=== PATIENT | female | born 1995 | race African-American/Black ===

== ENCOUNTER 2023-06-15 20:19 | Inpatient (IN) | payer BC, MEDICAID ==
[~2023-06-15] VITALS: Ht 175.3 cm; Wt 82.6 kg
[2023-06-15] MEDS ORDERED: SODIUM CHLORIDE 0.9% 1,000 ML IV ONE (20:45)
[2023-06-15 21:07] LABS: BASOPHILS % 0.6 % (0.0-2.0); EOSINOPHILS % 0.7 % (0.0-5.0); HEMATOCRIT. 38.5 % (36.0-48.0); HEMOGLOBIN. 12.5 g/dL (12.0-16.0); LYMPHOCYTES % 28.7 % (20.0-50.0); MEAN CORPUSCULAR HEMOGLOBIN 28.1 pg (28.0-32.0); MEAN CORPUSCULAR HGB CONC 32.5 g/dL (31.0-37.0); MEAN CORPUSCULAR VOLUME 86.3 fL (81.0-99.0); MEAN PLATELET VOLUME 7.3 fl (7.4-10.4); MONOCYTES % 5.2 % (2.0-8.0); NEUTROPHILS % 64.8 % (40.0-76.0); PLATELET 366 x1000/uL (130-400); RED BLOOD CELL COUNT 4.46 mill/uL (4.2-5.4); RED CELL DISTRIBUTION WIDTH 15.1 % (11.6-14.6); WHITE BLOOD COUNT 7.8 x1000/uL (4.5-11.0)
[2023-06-15 21:10] LABS: CHLORIDE 105 mEq/L (98-107); INDEX HEMOLYSI 1 (1-3); INDEX ICTERIC 1 (1-4); INDEX LIPEMIC 1 (1-3); POTASSIUM 3.1 mEq/L (3.5-5.1); SODIUM 134 mEq/L (136-145)
[2023-06-15 21:12] LABS: D-DIMER 0.22 mg/L FEU (<0.50); PROTHROMBIN TIME 11.2 sec (9.6-11.0)
[2023-06-15 21:19] LABS: ALANINE AMINOTRANSFERASE 27 IU/L (13-61); ALBUMIN 3.8 g/dL (3.4-5.0); ASPARTATE AMINOTRANSFERASE 20 IU/L (15-37); BILIRUBIN TOTAL 0.3 mg/dL (0.1-1.0); CALCIUM 8.5 mg/dL (8.5-10.1); CARBON DIOXIDE 21 mEq/L (21-32); CREATININE 0.9 mg/dL (0.6-1.3); ETHANOL BLOOD < 10 mg/dL (-10); GLUCOSE 223 mg/dL (70-105); NT PRO B-TYPE NATRIURETIC PEP 53 pg/mL (5-125); PROTEIN TOTAL 7.5 g/dL (6.0-8.3); UREA NITROGEN BLOOD 8 mg/dL (7-21)
[2023-06-15 21:21] LABS: TROPONIN I HIGH SENSITIVITY < 4 ng/L (<54)
[2023-06-15 21:24] LABS: HCG SCREEN NEGATIVE
[2023-06-15] MEDS ORDERED: POTASSIUM CHLORIDE 20MEQ TABLET SR PO ONE (21:30)
[2023-06-15 23:08] LABS: TROPONIN I HIGH SENSITIVITY < 4 ng/L (<54)
[2023-06-15 23:20] LABS: *BARBITURATES SCREEN URINE NEGATIVE (NEGATIVE); *BENZODIAZEPINES SCREEN URINE NEGATIVE (NEGATIVE); *COCAINE SCREEN URINE NEGATIVE (NEGATIVE); ECSTASY MDMA SCREEN URINE NEGATIVE (NEGATIVE); METHADONE URINE SCREEN NEGATIVE (NEGATIVE); OPIATES URINE SCREEN NEGATIVE (NEGATIVE); PHENCYCLIDINE URINE SCREEN NEGATIVE (NEGATIVE)
[2023-06-15 23:36] LABS: *AMPHETAMINES SCREEN URINE PRESUMTIVE POSITIVE (NEGATIVE); CANNABINOID URINE SCREEN PRESUMTIVE POSITIVE (NEGATIVE)
[2023-06-16 08:43] VITALS: BP 152/108; PULSE 73; RESP 19; TEMP 99.1
[2023-06-16 09:12] VITALS: BP 152/108; PULSE 73; RESP 19; TEMP 99.1
[2023-06-16] MEDS ORDERED: POTASSIUM CHLORIDE 20MEQ TABLET SR PO NR (10:00)
[2023-06-16] MEDS: DILTIAZEM HCL 60MG TABLET PO SCH ×2 (11:32→17:43)
[2023-06-16 12:00] VITALS: BP 134/76; PULSE 82; RESP 18; TEMP 97.5
[2023-06-16 16:00] VITALS: BP 137/89; RESP 18; TEMP 97.7
[2023-06-17] VITALS: BP 128/93; PULSE 58; RESP 18; TEMP 97.9
[2023-06-17] MEDS: DILTIAZEM HCL 60MG TABLET PO SCH ×3 (00:24→13:40)
[2023-06-17 04:00] VITALS: BP 139/95; PULSE 63; RESP 18; TEMP 97.7
[2023-06-17 07:11] LABS: BASOPHILS % 0.5 % (0.0-2.0); EOSINOPHILS % 2.3 % (0.0-5.0); HEMOGLOBIN. 13.8 g/dL (12.0-16.0); LYMPHOCYTES % 44.1 % (20.0-50.0); MEAN CORPUSCULAR HEMOGLOBIN 28.2 pg (28.0-32.0); MEAN CORPUSCULAR HGB CONC 32.8 g/dL (31.0-37.0); MEAN CORPUSCULAR VOLUME 85.9 fL (81.0-99.0); MEAN PLATELET VOLUME 7.4 fl (7.4-10.4); MONOCYTES % 6.4 % (2.0-8.0); NEUTROPHILS % 46.7 % (40.0-76.0); PLATELET 347 x1000/uL (130-400); RED BLOOD CELL COUNT 4.88 mill/uL (4.2-5.4); WHITE BLOOD COUNT 5.1 x1000/uL (4.5-11.0)
[2023-06-17 08:00] LABS: CHLORIDE 108 mEq/L (98-107); INDEX HEMOLYSI 1 (1-3); INDEX ICTERIC 1 (1-4); INDEX LIPEMIC 1 (1-3); POTASSIUM 4.1 mEq/L (3.5-5.1); SODIUM 137 mEq/L (136-145)
[2023-06-17 08:08] LABS: CALCIUM 8.7 mg/dL (8.5-10.1); CARBON DIOXIDE 26 mEq/L (21-32); CREATININE 0.8 mg/dL (0.6-1.3); GLUCOSE 76 mg/dL (70-105); UREA NITROGEN BLOOD 6 mg/dL (7-21)
[2023-06-17] MEDS ORDERED: DILT240C91 MT (11:06)
[2023-06-17 15:00] VITALS: BP 20/127; PULSE 65; TEMP 99.4; O2SAT 98
== END 2023-06-17 16:48 | disposition home or self-care (01) | DRG 201 ==
LOC: ER 20:19 → 8WST 06-16 01:51 → EDBEDREQ 06-16 01:59 → EDBEDREQTM 06-16 01:59
PROVIDERS: ADMIT Internal Medicine; ATTEND Internal Medicine
DX: I47.1 Supraventricular tachycardia (principal); E87.6 Hypokalemia; F15.10 Other stimulant abuse, uncomplicated; I10 Essential (primary) hypertension
CPT/HCPCS: 36415; 71045; 80048; 80053; 80305; 80320; 83735; 83880; 84484; 84703; 85025; 85379; 93005; 99291; J7030; G0480

== ENCOUNTER 2023-06-17 17:30 | Emergency (ER) | payer SELFPAY ==
[~2023-06-17] VITALS: Ht 175.3 cm; Wt 84.0 kg
[~2023-06-17 17:30] MED LIST: DILT240C91 MT
[2023-06-17 17:36] VITALS: O2SAT 100
[2023-06-17] MEDS ORDERED: LORAZEPAM 1MG TABLET PO ONE (18:15)
[2023-06-17 19:45] VITALS: BP 142/80; PULSE 104; RESP 16; TEMP 99
== END 2023-06-17 19:54 | disposition home or self-care (01) ==
LOC: ER 17:30
DX: R00.0 Tachycardia, unspecified (principal); I10 Essential (primary) hypertension; F12.10 Cannabis abuse, uncomplicated
CPT/HCPCS: 93005; 99283

== ENCOUNTER 2023-06-20 18:23 | Emergency (ER) | payer SELFPAY ==
[~2023-06-20] VITALS: Ht 175.3 cm; Wt 83.0 kg
[2023-06-20 18:25] VITALS: BP 137/89; PULSE 78; RESP 18; TEMP 99; O2SAT 100
== END 2023-06-21 01:31 | disposition left against medical advice (07) ==
LOC: ER 18:23
DX: Z53.21 Procedure and treatment not carried out due to patient leaving prior to being seen by health care provider (principal)
CPT/HCPCS: 99281

== ENCOUNTER 2023-06-23 20:42 | Emergency (ER) | payer SELFPAY ==
[~2023-06-23] VITALS: Ht 175.3 cm; Wt 65.0 kg
[2023-06-23 20:51] VITALS: O2SAT 100
[2023-06-23 21:47] LABS: CHLORIDE 108 mEq/L (98-107); INDEX HEMOLYSI 1 (1-3); INDEX ICTERIC 1 (1-4); INDEX LIPEMIC 1 (1-3); POTASSIUM 3.3 mEq/L (3.5-5.1); SODIUM 136 mEq/L (136-145)
[2023-06-23 22:04] LABS: ALANINE AMINOTRANSFERASE 22 IU/L (13-61); ALBUMIN 3.7 g/dL (3.4-5.0); ASPARTATE AMINOTRANSFERASE 16 IU/L (15-37); BILIRUBIN TOTAL 0.1 mg/dL (0.1-1.0); CALCIUM 8.6 mg/dL (8.5-10.1); CARBON DIOXIDE 24 mEq/L (21-32); CREATININE 0.9 mg/dL (0.6-1.3); GLUCOSE 125 mg/dL (70-105); PROTEIN TOTAL 7.1 g/dL (6.0-8.3); TROPONIN I HIGH SENSITIVITY 4 ng/L (<54); UREA NITROGEN BLOOD 12 mg/dL (7-21)
[2023-06-23 22:05] LABS: HCG SCREEN NEGATIVE
[2023-06-23 22:48] LABS: BASOPHILS % 0.3 % (0.0-2.0); EOSINOPHILS % 0.9 % (0.0-5.0); HEMATOCRIT. 36.9 % (36.0-48.0); HEMOGLOBIN. 12.1 g/dL (12.0-16.0); LYMPHOCYTES % 31.8 % (20.0-50.0); MEAN CORPUSCULAR HEMOGLOBIN 28.2 pg (28.0-32.0); MEAN CORPUSCULAR HGB CONC 32.8 g/dL (31.0-37.0); MEAN CORPUSCULAR VOLUME 86.1 fL (81.0-99.0); MONOCYTES % 10.5 % (2.0-8.0); NEUTROPHILS % 56.5 % (40.0-76.0); PLATELET 302 x1000/uL (130-400); RED BLOOD CELL COUNT 4.29 mill/uL (4.2-5.4); RED CELL DISTRIBUTION WIDTH 15.6 % (11.6-14.6); WHITE BLOOD COUNT 6.6 x1000/uL (4.5-11.0)
[2023-06-24 00:40] VITALS: BP 134/81; PULSE 73; RESP 17; TEMP 97.7
== END 2023-06-24 00:43 | disposition home or self-care (01) ==
LOC: ER 20:42
DX: R00.2 Palpitations (principal); F41.9 Anxiety disorder, unspecified; I10 Essential (primary) hypertension
CPT/HCPCS: 36415; 71045; 80053; 84443; 84484; 84703; 85025; 93005; 99285

== ENCOUNTER 2024-02-16 12:08 | Emergency (ER) | payer MEDICAID ==
[~2024-02-16] VITALS: Ht 170.2 cm; Wt 65.0 kg
[2024-02-16 12:09] VITALS: O2SAT 99
[2024-02-16 12:38] LABS: BASOPHILS % 0.8 % (0.0-2.0); EOSINOPHILS % 0.1 % (0.0-5.0); HEMATOCRIT. 40.1 % (36.0-48.0); HEMOGLOBIN. 13.3 g/dL (12.0-16.0); LYMPHOCYTES % 25.2 % (20.0-50.0); MEAN CORPUSCULAR HEMOGLOBIN 26.8 pg (28.0-32.0); MEAN CORPUSCULAR HGB CONC 33.1 g/dL (31.0-37.0); MEAN PLATELET VOLUME 7.4 fl (7.4-10.4); MONOCYTES % 9.4 % (2.0-8.0); NEUTROPHILS % 64.5 % (40.0-76.0); PLATELET 319 x1000/uL (130-400); RED BLOOD CELL COUNT 4.96 mill/uL (4.2-5.4); RED CELL DISTRIBUTION WIDTH 14.2 % (11.6-14.6); WHITE BLOOD COUNT 7.6 x1000/uL (4.5-11.0)
[2024-02-16] MEDS: LORAZEPAM 2MG/ML INJ IV ONE (12:55)
[2024-02-16] MEDS: SODIUM CHLORIDE 0.9% 1,000 ML IV ONE (12:55)
[2024-02-16] MEDS: DILTIAZEM HCL 5MG/ML 5ML VIAL IV ONE (12:55)
[2024-02-16 12:58] LABS: ALANINE AMINOTRANSFERASE 12 IU/L (10-49); ALBUMIN 5.1 g/dL (3.2-4.8); ASPARTATE AMINOTRANSFERASE 19 IU/L (<34); BILIRUBIN TOTAL 0.9 mg/dL (0.1-1.0); CALCIUM 9.5 mg/dL (8.7-10.4); CARBON DIOXIDE 22 mEq/L (21-32); CHLORIDE 102 mEq/L (98-107); CREATININE 1.1 mg/dL (0.6-1.0); GLUCOSE 115 mg/dL (70-105); PROTEIN TOTAL 8.6 g/dL (6.0-8.3); SODIUM 134 mEq/L (136-145); UREA NITROGEN BLOOD 9 mg/dL (9-23)
[2024-02-16] MEDS: DILTIAZEM HCL 120MG CAPSULE ER 24HR PO ONE (13:17)
[2024-02-16] MEDS: MAGNESIUM 2 G PREMIX 50 ML IV ONE (13:57)
[2024-02-16] MEDS: POTASSIUM CHLORIDE 20MEQ TABLET SR PO ONE (13:57)
[2024-02-16 14:44] VITALS: BP 132/87; PULSE 125; RESP 16; TEMP 98.3
== END 2024-02-16 14:42 | disposition left against medical advice (07) ==
LOC: ER 12:17 → EDBEDREQ 14:15 → EDBEDREQTM 14:15 → ER 14:42 → CANBEDREQ 02-17 07:43
DX: I47.10 Supraventricular tachycardia, unspecified (principal); F41.9 Anxiety disorder, unspecified; I10 Essential (primary) hypertension
CPT/HCPCS: 80053; 83735; 85025; 36415; 71045; 93005; 96361; 96365; 96375; 99291; J3490; J2060; J3475; J7030; Z7610; 99285